=== PATIENT | female | born 1965 | race Caucasian/White ===

== ENCOUNTER 2021-02-08 07:40 | Emergency (ER) | payer MEDICAID, OTHER ==
[2021-02-08] MEDS ORDERED: ACET500P3 PO (21:30)
[2021-02-09] MEDS ORDERED: PRED20TA PO (08:51)
== END 2021-02-08 07:47 | disposition left against medical advice (07) ==
LOC: M ED 07:40
DX: Z53.21 Procedure and treatment not carried out due to patient leaving prior to being seen by health care provider (principal)

== ENCOUNTER 2021-02-08 21:08 | Emergency (ER) | payer OTHER ==
[~2021-02-08] VITALS: Ht 165.1 cm; Wt 63.8 kg
[2021-02-08] MEDS ORDERED: ACET500P3 PO (21:30)
[2021-02-09 07:45] LABS: BASO % 0.5 % (0.0-1.0); EOS # 0.3 10^3/uL (0.0-0.5); EOS % 3.6 % (0.0-3.0); HEMOGLOBIN 13.2 g/dl (12.0-15.5); LYMPH # 2.5 10^3/uL (1.5-5.0); LYMPH % 30.7 % (24.0-44.0); MEAN CORPUSCULAR HEMOGLOBIN 29.5 pg (27.0-33.0); MEAN CORPUSCULAR VOLUME 89.5 fl (80.0-96.0); MONO # 0.7 10^3/uL (0.0-0.8); MONO % 8.9 % (2.0-8.0); NEUTROPHILS # 4.5 10^3/uL (1.5-8.5); PLATELET COUNT, AUTOMATED 350 10^3/uL (150-450); RED BLOOD COUNT 4.47 10^6/uL (4.00-5.40)
[2021-02-09 08:05] LABS: ERYTHROCYTE SEDIMENTATION RATE 34 mm/hr (0-30)
[2021-02-09 08:09] LABS: BLOOD UREA NITROGEN 9 MG/DL (7-18); CALCIUM LEVEL 9.5 MG/DL (8.5-10.1); CARBON DIOXIDE LEVEL 30 MEQ/L (21-32); CHLORIDE LEVEL 109 MEQ/L (98-107); CREATININE FOR GFR 0.68 MG/DL (0.55-1.30); GLOMERULAR FILTRATION RATE > 60.0 (>51); GLUCOSE, FASTING 90 MG/DL (70-100); POTASSIUM SERUM 4.2 MEQ/L (3.5-5.1); SODIUM LEVEL 141 MEQ/L (136-145)
--- NOTE | 2021-02-09 08:37 | REP ---
INDICATION: pain and swelling COMPARISON: None. TECHNIQUE: AP, lateral, bilateral oblique views left wrist. FINDINGS: The carpal bones, surrounding osseous structures, and joint spaces are normal. There is no evidence for acute fracture or dislocation. Subtle soft tissue swelling primarily along the ulnar aspect of the wrist is suggested. No subcutaneous emphysema or foreign body identified. IMPRESSION: Mild swelling. No acute fracture or dislocation. <Electronically signed by Burke Montejo > 02/09/21 [id number]
[2021-02-09] MEDS ORDERED: PRED20TA PO (08:51)
[2021-02-09 08:59] VITALS: BP 148/78
== END 2021-02-09 08:59 | disposition home or self-care (01) ==
LOC: M ED 21:08
DX: M11.232 Other chondrocalcinosis, left wrist (principal)